=== PATIENT | female | born 1990 | race Caucasian/White ===

== ENCOUNTER → 2023-11-27 | Outpatient (CLI) | payer OTHER ==
[~2023-11-27] MED LIST: BACTRIM DS 8001 TA1 PO; KEFLEX500 MG PO; LO LOESTRIN FE1 TAB PO; MOTRIN800 MG PO; NORFLEX100 MG PO
[2023-11-27 11:10] LABS: FREE T4 1.21 ng/dl (0.89-1.76)
== END | disposition home or self-care (01) ==
LOC: LAB 10:08
PROVIDERS: ATTEND Internal Medicine
DX: R79.89 Other specified abnormal findings of blood chemistry (principal)